=== PATIENT | male | born 1975 | race Two or more races ===

== ENCOUNTER 2024-06-27 00:15 | Emergency (ER) | payer OTHER ==
[~2024-06-27] VITALS: Ht 175.3 cm; Wt 74.8 kg
[2024-06-27] MEDS ORDERED: HYDROCODONE/APAP 5/325MG TABLET ONE (01:25)
[2024-06-27] MEDS ORDERED: CEPHALEXIN MONOHYDRATE 500 MG CAPSULE PO ONE (01:25)
[2024-06-27] MEDS: HYDROCODONE/APAP 5/325MG TABLET PO ONE (01:26)
[2024-06-27] MEDS ORDERED: SULFAMETH/TRIMETH 800/160 MG 1 UDTAB TABLET ONE (01:26)
[2024-06-27] MEDS: SULFAMETH/TRIMETH 800/160 MG 1 UDTAB TABLET PO ONE (01:26)
[2024-06-27] MEDS: CEPHALEXIN MONOHYDRATE 500 MG CAPSULE PO ONE (01:26)
[2024-06-27] MEDS ORDERED: SULF1TAB48 PO (01:47)
[2024-06-27] MEDS ORDERED: CEPH500T PO (01:47)
[2024-06-27] MEDS ORDERED: IBUP-1953 PO (01:47)
[2024-06-27 02:11] VITALS: BP 137/80; TEMP 98.7; O2SAT 98
== END 2024-06-27 02:11 | disposition home or self-care (01) ==
LOC: ER 00:16
DX: S00.83XA Contusion of other part of head, initial encounter (principal); L03.116 Cellulitis of left lower limb; L03.113 Cellulitis of right upper limb; Y04.0XXA Assault by unarmed brawl or fight, initial encounter; Y93.89 Activity, other specified; Y92.89 Other specified places as the place of occurrence of the external cause; Y99.8 Other external cause status
CPT/HCPCS: 70450-TC; 70486-TC